=== PATIENT | female | born 1960 | race Caucasian/White ===

== ENCOUNTER 2018-02-08 14:20 | Day surgery (SDC) | payer OTHER, SELFPAY ==
[2018-02-04 12:51] VITALS: BMI 33.6
[2018-02-08] VITALS (9 sets, daily range): BP systolic 128–164; BP diastolic 75–100; PULSE 80–111; RESP 7–19; TEMP 36.2–36.7; O2SAT 95–99; BMI 33.6
--- NOTE | 2018-02-08 | DI.RAD.S_ITS ---
PROCEDURE: XR THORACIC SPINE 3V INDICATIONS: Fracture TECHNIQUE: 4 views of the thoracic spine were acquired. COMPARISON: None. FINDINGS: 4 spot fluoroscopic intraoperative images demonstrating T12 vertebroplasty Dictated by: Casey Radford M.D. on 02/08/2018 at 19:46 Approved by: Casey Radford M.D. on 02/08/2018 at 19:47
--- NOTE | 2018-02-08 | PATH_ITS ---
[facility] Accession Number: [id number] . 01 Material submitted: . T12 BONE . 02 Diagnosis: Specimen Designated T12 Bone: Fragments of normal appearing bone with normal appearing hematopoietic marrow. MRV/02/13/2018 . 02 Electronically signed: . Jamie Read MD, Pathologist NPI- [id number] . 01 Gross description: . Received in formalin, labeled 1) T12 bone biopsy, is a piece of red-brown hard bone (length-0.8 cm, diameter-0.2 cm). Submitted intact in cassette A1. Note: The specimen has been decalcified. ([id number]) /MRV . 02 Pathologist provided ICD-10: S22.001G . 02 CPT . 800920, [id number] Performed at: 01 [facility] [address] [id number] MD Gabriel Anne MD Phone: [phone] Performed at: 02 [facility] [address] [place], [place] [id number] MD Portillo Holder MD Phone: [phone]
[2018-02-08] MEDS: LACTATED RINGERS 1,000 ML 42 ML IV ×2 (15:52→19:12)
--- NOTE | 2018-02-08 17:38 | PM.PREOP ---
Pre-operative Note Interval Note Pre-op Check: History & Physical Reviewed by Physician and Exam Performed
--- NOTE | 2018-02-08 17:41 | P.OP_ITS ---
Operative Date/Time/Diagnoses Date of procedure: 02/08/18 Time of procedure: 19:04 Pre-op diagnosis: T12 compression fracture Post-op diagnosis: same Procedure & Clinicians Procedure: T12 kyphoplasty Same procedure as scheduled: Yes Indications: [age] year old female with intractable pain from compression fracture. They had failed conservative management and requested operative intervention. Risks and benefits of surgery were discussed and appropriate consents were obtained. Surgeon: Elias Pena Click Yes if Unassisted: Yes Anesthesia Type: General Operative Notes Findings: none Closure Type: primary Specimen(s): other (T12 vertebral body) Estimated Blood Loss (mL): 2 Procedure in detail: The patient was brought to the operating room and intubated on the table. They were then rolled over to the well-padded prone position. Time-out was performed. We confirmed positioning with two fluoroscopy views. The back was prepped and draped in the standard sterile fashion. Preoperative antibiotics were given. Using fluoroscopic guidance, the planned incision site was infiltrated with Marcaine with epinephrine and injected down to the entry site of the left pedicle of T12. A small stab incision was made and we advanced a Jamshiedi needle down the left pedicle into the vertebral body. A bone biopsy was harvested from this and sent to pathology. We then passed the DFine osteotome and opened it up to create a void inside the vertebral body. We then began injecting the cement. This was done with frequent fluoroscopy imaging. There was no extravasation. Once we had good fill of the T12 vertebral body the injection was stopped and the trocars were removed. Final x- rays were taken. The wound was cleaned. Steri-Strips and sterile dressing were placed. Patient was rolled over, extubated, and brought to recovery without complications. Complications: none Condition: stable Disposition: same day surgery Plan for aftercare: outpt. activity as tolerated
[2018-02-08] MEDS: CEFAZOLIN 1 GM VIAL 2 GM IV (18:31)
--- NOTE | 2018-02-08 18:48 | SUR.OPER ---
Prone on padded OR bed, head in foam head support, gel chest rolls, gel pad under knees, pillow under lower legs, toes free of pressure, arms secured on padded arm boards at <90 degrees abduction. Safety belt at thigh.
--- NOTE | 2018-02-08 18:48 | SUR.OPER ---
to or from opd via gurney induced on gurney then to prone positione as noted
[2018-02-08] MEDS: BUPIVACAINE 0.25% W/ EPI 50 ML VIAL 12 ML INJ (19:14)
[2018-02-08] MEDS: fentaNYL 100 MCG/2 ML INJ 50 MCG IV ×2 (19:20→19:29)
[2018-02-08] MEDS: TRAMADOL 50 MG TABLET PO (19:44)
--- NOTE | 2018-02-08 20:18 | SUR.PHASEII ---
mom brought in, d/c instructions discussed, vss, ready to go, pt dressed and left unit in stable condiiton. dressing intact, small amount of bloody drainage on dressing.
== END 2018-02-08 20:20 | disposition home or self-care (01) ==
PROVIDERS: Visit Provider Orthopaedic Surgery
PROC: (CPT 22513; principal; 2018-02-08 16:15)
DX: M80.88XA Other osteoporosis with current pathological fracture, vertebra(e), initial encounter for fracture (principal); S22.080A Wedge compression fracture of T11-T12 vertebra, initial encounter for closed fracture; M54.89 Other dorsalgia; S39.012A Strain of muscle, fascia and tendon of lower back, initial encounter
CPT/HCPCS: 22513; 72074; 76001; C1776; J0330; J0690; J1100; J2250; J2405; J2704; J3010